=== PATIENT | female | born 1955 ===

== ENCOUNTER 2016-10-11 15:13 | Emergency (ER) | payer OTHER ==
--- NOTE | 2016-10-11 15:47 | ED Physician Documentation ---
Lower Extremity Injury - HISTORIAN Historian: patient - HPI Chief Complaint: Lower Extremity Injury Onset: minutes (60) Where: neighbors Context: fall Associated Symptoms:: other (pain in the left 5th finger, laceration to the left knee) Modifying Factors:: pain on movement - ROS CONST: no problems CVS/RESP: none - PAST HX Past History: other (GERDs, HTN, asthma) Allergies/Adverse Reactions: Allergies Allergy/AdvReac Type Severity Reaction Status Date / Time cefaclor [From Ceclor] AdvReac Hives Verified 10/11/16 16:30 moxifloxacin HCl AdvReac Rash Verified 10/11/16 16:30 [From Avelox] Penicillins AdvReac Blister Verified 10/11/16 16:30 Sulfa (Sulfonamide AdvReac Rash Verified 10/11/16 16:30 Antibiotics) Home Medications: Ambulatory Orders Medication Instructions Recorded Amlodipine Besylate [Amlodipine 10/11/16 Besylate] Aspirin [Silvia] 10/11/16 Doxycycline Monohydrate [Monodox] 100 mg PO BID #14 capsule 10/11/16 Fluticasone/Salmeterol [Advair 10/11/16 250-50 Diskus] Tiotropium Clio [Spiriva] 10/11/16 - SOCIAL HX Smoking History: non-smoker, quit greater than 1 year (3 years) Alcohol Use: none Drug Use: none - FAMILY HX Family History: no significant history - VITAL SIGNS Vital Signs: Vital Signs Temp Pulse Resp BP Pulse Ox 121 H 20 205/85 93 10/11/16 16:12 10/11/16 16:12 10/11/16 16:12 10/11/16 16:12 - REVIEWED ASSESSMENTS Nursing Assessment Reviewed: Yes Vitals Reviewed: Yes Procedures - Laceration/Wound Repair Left Finger Wound Length: 3.6 cm Wound's Depth, Shape: superficial, flap (y shape) Wound Explored: no foreign body removed Irrigated w/ Saline (ccs): 30 Betadine Prep?: No (Hexadyne) Anesthesia: 1% Lidocaine Volume of Anesthetic: 2cc Wound Debrided: none Wound Repaired With: sutures Suture Size/Type: 5:0 Number of Sutures: 4 Layer Closure?: No - Joint Reduction Joint Reduction Site: other (left 5th PIP) Reduction Attempts: 1 Pre-Procedure NV Exam: Yes (normal) Post-Procedure NV Exam: Yes post joint reduction film: no fracture seen ED Results Lab/Radiology - Orders Orders: ED Orders Category Date Time Status FINGER 2 VIEWS OR MORE [RAD] Stat Exams 10/11/16 Ordered FINGER 2 VIEWS OR MORE [RAD] Stat Exams 10/11/16 Ordered Diph,Pertuss(Acell),Tet Vac/Pf [Adacel] Med 10/11/16 16:00 Ordered 0.5 ml IM 1T Lidocaine 1% 5ml(IM or SUTURE) [Xylocaine] Med 10/11/16 15:52 Discontinued 50 mg IJ NOW ONE Lower Extremities Injury Phy - Physical Exam General Appearance: no acute distress, alert Knees: right: non-tender, normal inspection, normal range of motion, no evidence of injury, left: ecchymosis, pain, soft tissue tenderness, swelling ( minimal), other (open wound), N/A: deformity (none), joint effusion (none) Ankle: bilateral: non-tender, normal inspection, normal range of motion, no evidence of injury Ligaments: No: pain on anterior drawer, laxity on anterior drawer, pain on posterior drawer, laxity on posterior drawe, pain on medial stress, laxity on medial stress, pain on lateral stress, laxity on lateral stress Gait: limited by pain Neuro/Vascular/Tendon: no vascular compromise, motor nml, sensation nml Resp/CVS: chest non-tender, breath sounds nml, heart sounds nml, no resp. distress, lungs clear, reg. rate & rhythm Discharge Clincal Impression: Laceration of knee Qualifiers: Encounter type: initial encounter Laterality: left Qualified Code(s): S81.012A - Laceration without foreign body, left knee, initial encounter Dislocation of finger, left, closed Qualifiers: Encounter type: initial encounter Qualified Code(s): S63.259A - Unspecified dislocation of unspecified finger, initial encounter Prescriptions: Doxycycline Monohydrate [Monodox] 100 mg PO BID #14 capsule Home Medications: Ambulatory Orders Amlodipine Besylate [Amlodipine Besylate] 10/11/16 Aspirin [Silvia] 10/11/16 Doxycycline Monohydrate [Monodox] 100 mg PO BID #14 capsule 10/11/16 Fluticasone/Salmeterol [Advair 250-50 Diskus] 10/11/16 Tiotropium Clio [Spiriva] 10/11/16 Condition: Stable Disposition: 01 HOME, SELF-CARE Decision to Admit: NO Date of Decison to Admit: 10/11/16 Decision Time: 17:20
[2016-10-11] MEDS ORDERED: Lidocaine 1% 5ml(IM or SUTURE)(PAIN CLINIC) IJ ONE (15:52)
[2016-10-11] MEDS ORDERED: DIPH,PERTUSS(ACELL),TET VAC/PF 0.5 ML DISP.SYRIN IM SCH (16:00)
[2016-10-11] MEDS ORDERED: DIPH,PERTUSS(ACELL),TET VAC/PF 0.5 ML DISP.SYRIN IM ONE (16:14)
[2016-10-11 18:03] VITALS: BP 175/88
--- NOTE | 2016-10-11 18:21 | Diagnostic Imaging Report ---
[facility] [address] [facility] [id number] Report Submission Date: Oct 11, 2016 5:36:35 PM SHIP JOINER Patient Study Name: ALBERTO DE LEON Date: Oct 11, 2016 5:10:15 PM SHIP JOINER Modality Type: CR Gender: F Description: UPPER EXTREMITY : 51 Institution: [facility] Physician: LUCINA LEBLANC 3 views of the left 5th digit Clinical history: Status post reduction Findings: There is interval reduction of the 5th pip dislocation. No fractures identified. There is minimal dorsal subluxation noted. Otherwise, alignment is normal. Impression: Interval reduction of 5th pip joint as above Electronically signed on Oct 11, 2016 5:36:35 PM SHIP JOINER by: Mariusz ALAS
--- NOTE | 2016-10-11 18:29 | Diagnostic Imaging Report ---
[facility] [address] [facility] [address] [address] Report Submission Date: Oct 11, 2016 4:15:34 PM GROUP SUPERVISOR YARD Patient Study Name: ALBERTO DE LEON Date: Oct 11, 2016 3:57:41 PM GROUP SUPERVISOR YARD Modality Type: CR Gender: F Description: UPPER EXTREMITY : 51 Institution: [facility] Physician: LUCINA LEBLANC 3 views of the left 5th digit Clinical history: Left 5th digit injury Findings: There is a ulnar dislocation of the middle phalanx on the proximal phalanx with near complete offset. There is also dorsal subluxation. no definite fractures identified. Impression: Left 5th digit dislocation as above Electronically signed on Oct 11, 2016 4:15:34 PM GROUP SUPERVISOR YARD by: Mariusz ALAS
== END 2016-10-11 17:48 | disposition home or self-care (01) ==
LOC: ED 15:13
DX: S81.012A Laceration without foreign body, left knee, initial encounter (principal); S63.287A Dislocation of proximal interphalangeal joint of left little finger, initial encounter; W19.XXXA Unspecified fall, initial encounter; Y93.9 Activity, unspecified; Y99.9 Unspecified external cause status
CPT/HCPCS: 26770; 73140; 90471; 90715; 99283

== ENCOUNTER 2018-09-26 13:11 | Outpatient (CLI) | payer MEDICARE, OTHER ==
--- NOTE | 2018-09-26 13:45 | Diagnostic Imaging Report ---
DIVINA ROWELL [facility] [address] [facility] [address] [address] Report Submission Date: Sep 26, 2018 1:36:32 PM PLATE MILL HAND Patient Study Name: ALBERTO DE LEON Date: Sep 26, 2018 1:15:47 PM PLATE MILL HAND Modality Type: DX Gender: F Description: LOWER EXTREMITY : 51 Institution: [facility] Physician: DIVINA ROWELL Examination: Plain film left foot History: 63/F LT FOOT - PT STATES SHE FELL IN HOLE MONDAY - PAIN ON LATERAL FOOT (Hx) Findings: 3 views of the left foot demonstrates mild degenerative changes. No fracture or dislocation. No soft tissue swelling. No joint effusion. Impression: Mild degenerative changes. No acute appearing cortical abnormality. Electronically signed on Sep 26, 2018 1:36:32 PM PLATE MILL HAND by: Oscar ALAS
== END 2018-09-26 13:15 | disposition home or self-care (01) ==
LOC: RAD 13:11
PROVIDERS: ATTEND Nurse Practitioner Family
DX: M79.672 Pain in left foot (principal); M19.072 Primary osteoarthritis, left ankle and foot
CPT/HCPCS: 73630